=== PATIENT | female | born 1955 ===

== ENCOUNTER 2018-07-19 11:10 | Emergency (ER) | payer MEDICARE ==
[2018-07-19 11:45] VITALS: BP 116/53
--- NOTE | 2018-07-19 12:01 | UC ---
Bite Injury/Animal HPI - HPI Summary HPI Summary: 63-year-old woman comes in with a chief complaint of 2 tick bites body aches and fevers. One Month ago patient removed a tick from her right lower abdomen leg area. 3 days ago she removed a tick from the right side of her lower neck. She's been having joint and body aches and low-grade fevers. Denies any other source of infection. No runny nose no sore throat no chest congestion. She has had some loose stools last couple of days. No abdominal pain. No dysuria. Patient did not have a bull's-eye rash. - History of Current Complaint Chief Complaint: UCSkin Stated Complaint: TICK CONCERN Time Seen by Provider: 07/19/18 11:40 Pain Intensity: 0 - Allergies/Home Medications Allergies/Adverse Reactions: Allergies Allergy/AdvReac Type Severity Reaction Status Date / Time No Known Allergies Allergy Verified 07/19/18 11:45 Home Medications: Home Medications Budesonide/Formote 160/4.5(NF) [Symbicort 160/4.5 (NF)] 1 puff INH DAILY [History Confirmed 07/19/18] Fluoxetine HCl [Prozac] 1 tab PO DAILY 07/19/18 [History Confirmed 07/19/18] Ibuprofen 1 tab PO ONCE 07/19/18 [History Confirmed 07/19/18] Metoprolol Tartrate [Lopressor] 1 tab PO DAILY 07/19/18 [History Confirmed 07/19] Pravastatin (NF) [Pravachol (NF)] 1 tab PO DAILY 07/19/18 [History Confirmed 07/02] Tiagabine HCl [Gabitril] 1 tab PO DAILY 07/19/18 [History Confirmed 07/19/18] Umeclidinium 62.5 MDI(NF) [Incruse ELLIPTA MDI (NF)] 1 puff INH DAILY 07/19/18 [ History Confirmed 07/19/18] traZODone TAB* [Desyrel TAB*] 1 tab PO BEDTIME 07/19/18 [History Confirmed 07/19] PMH/Surg Hx/FS Hx/Imm Hx Previously Healthy: Yes Endocrine History: Dyslipidemia Cardiovascular History: Hypertension - Surgical History Surgical History: Yes Surgery Procedure, Year, and Place: 2 cerebral aneurysms clipped, L breast lumpectomy (benign), 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, c- section x 1 - Family History Known Family History: Positive: Non-Contributory - Social History Alcohol Use: None Substance Use Type: None Smoking Status (MU): Heavy Every Day Tobacco Smoker Type: Cigarettes Amount Used/How Often: 1.5 ppd Review of Systems All Other Systems Reviewed And Are Negative: Yes Constitutional: Positive: Fever, Chills, Other - SEE HPI Skin: Positive: Other - SEE HPI Eyes: Positive: Negative ENT: Positive: Negative Respiratory: Positive: Negative Cardiovascular: Positive: Negative Gastrointestinal: Positive: Diarrhea Genitourinary: Positive: Negative Motor: Positive: Negative Neurovascular: Positive: Negative Musculoskeletal: Positive: Myalgia, Other: - SEE HPI Neurological: Positive: Negative Psychological: Positive: Negative Is Patient Immunocompromised?: No Physical Exam Triage Information Reviewed: Yes Appearance: Well-Appearing, No Pain Distress, Well-Nourished Vital Signs: Initial Vital Signs Temp 97.6 F 07/19/18 11:37 Pulse 55 07/19/18 11:37 Resp 18 07/19/18 11:37 BP 116/53 07/19/18 11:37 Pulse Ox 98 07/19/18 11:37 Vital Signs Reviewed: Yes Eye Exam: Normal Eyes: Positive: Conjunctiva Clear Neck: Positive: Supple Respiratory: Positive: Lungs clear, Normal breath sounds, No respiratory distress Cardiovascular: Positive: RRR Musculoskeletal Exam: Normal Musculoskeletal: Positive: Strength Intact, ROM Intact Neurological Exam: Normal Neurological: Positive: Alert, Muscle Tone Normal Psychological Exam: Normal Psychological: Positive: Age Appropriate Behavior Skin: Positive: Other - RT LOWER NECK PUNCTATE TICK BITE ON RAISED 1CM LESION. NO BULLS EYE RASH. Bite Injury Course/Dx - Course Course Of Treatment: We discussed the signs and symptoms of Lyme disease. Patient does not have a bull's-eye rash. However with the body aches and arthralgias and low-grade fevers I am suspicious for Lyme disease. We discussed getting blood work to check for Lyme disease and also treatment with 2 weeks of doxycycline. At this time the patient prefers to have the blood work and also be treated for Lyme disease. We discussed other possible sources of infection and that if the patient does not get better she needs to get further follow-up with her primary care doctor or another medical provider. - Differential Dx/Diagnosis Provider Diagnosis: Tick bite of neck Discharge - Sign-Out/Discharge Documenting (check all that apply): Patient Departure All imaging exams completed and their final reports reviewed: No Studies - Discharge Plan Condition: Stable Disposition: HOME Prescriptions: DOXYcycline CAP(*) [DOXYcycline 100MG CAP(*)] 100 mg PO BID #28 cap Patient Education Materials: Lyme Disease (ED), Tick Bite (ED) Referrals: Milla Rincon PA [Primary Care Provider] - Additional Instructions: FOLLOW UP WITH YOUR DOCTOR IF NOT COMPLETELY IMPROVED. GET RECHECKED SOONER IF YOUR CONDITION WORSENS OR ANY QUESTIONS OR CONCERNS. - Billing Disposition and Condition Condition: STABLE Disposition: Home
[2018-07-19 19:18] LABS: ABS Eosinophils 0.1 10^3/ul (0-0.6); ABS Lymphocytes 1.7 10^3/ul (1.0-4.8); ABS Monocytes 0.4 10^3/ul (0-0.8); ABS Neutrophils 3.3 10^3/ul (1.5-7.7); Eosinophil % 1.5 %; Hematocrit 39 % (35-47); Hemoglobin 13.2 g/dL (12.0-16.0); Lymphocyte % 30.7 %; Mean Corpuscular HGB Conc 34 g/dL (31-36); Mean Corpuscular Hemoglobin 32 pg (27-31); Mean Corpuscular Volume 96 fL (80-97); Mean Platelet Volume 8.5 fL (7.4-10.4); Nucleated Red Blood Cells % 0.1; Platelet Count 231 10^3/uL (150-450); Red Blood Count 4.12 10^6 /uL (3.70-4.87); Red Cell Distribution Width 13 % (10.5-15); White Blood Count 5.6 10^3/uL (3.5-10.8)
== END 2018-07-19 12:13 | disposition home or self-care (01) ==
LOC: UCCORT 11:10
DX: T63.481A Toxic effect of venom of other arthropod, accidental (unintentional), initial encounter (principal); Y92.9 Unspecified place or not applicable; I10 Essential (primary) hypertension; E78.5 Hyperlipidemia, unspecified; F17.210 Nicotine dependence, cigarettes, uncomplicated
CPT/HCPCS: 36415; 85025; 86618; 99212; G0463